=== PATIENT | male | born 1995 | race Caucasian/White ===

== ENCOUNTER 2022-05-31 08:44 | Emergency (ER) | payer SELFPAY ==
[2022-05-31] MEDS ORDERED: predniSONE 20 MG TAB ONE (09:28)
[2022-05-31] MEDS ORDERED: Ketorolac Tromethamine 30 MG/ML VIAL ONE (09:29)
== END 2022-05-31 10:20 | disposition home or self-care (01) ==
LOC: CSHERS 08:44
DX: S20.211A Contusion of right front wall of thorax, initial encounter (principal); J44.9 Chronic obstructive pulmonary disease, unspecified; F17.200 Nicotine dependence, unspecified, uncomplicated
CPT/HCPCS: 71045; 93005; 96372; J1885; J7512; J7620